=== PATIENT | male | born 1930 | race Caucasian/White ===

== ENCOUNTER 2017-12-08 15:46 | Inpatient (IN) | payer MEDICARE, MEDICAID ==
[~2017-12-08] VITALS: Ht 172.7 cm; Wt 84.8 kg
[2017-12-08] MEDS ORDERED: SODIUM CHLORIDE 0.9% 1,000 ML IV ONE (16:31)
[2017-12-08 18:24] LABS: CHLORIDE 125 mEq/L (98-107); INR 2.6; PROTHROMBIN TIME 26.1 sec (9.1-11.1)
[2017-12-08 18:27] LABS: ETHANOL BLOOD < 10 mg/dL
[2017-12-08 18:31] LABS: CLARITY URINE CLOUDY (CLEAR); COLOR URINE DARK YELLOW (YELLOW); KETONES URINE TRACE (NEGATIVE); LEUKOCYTE ESTERASE URINE NEGATIVE (NEGATIVE); NITRITE URINE NEGATIVE (NEGATIVE); OCCULT BLOOD URINE NEGATIVE (NEGATIVE); PROTEIN URINE NEGATIVE (NEGATIVE); SPECIFIC GRAVITY URINE 1.014 (1.005-1.030)
[2017-12-08] MEDS ORDERED: MEROPENEM 1,000 MG in SODIUM CHLORIDE 0.9% 100 ML IV NR (19:00)
[2017-12-08] MEDS ORDERED: ASPIRIN 325MG TABLET PO NR (19:00)
[2017-12-08] MEDS ORDERED: VANCOMYCIN 1 G PREMIX 200 ML IV NR (19:00)
[2017-12-08] MEDS ORDERED: SODIUM CHLORIDE 0.9% 1000ML BAG (SEPSIS BOLUS) IV ONE (19:00)
[2017-12-08] MEDS ORDERED: SODIUM CHLORIDE 0.9% 1,250 ML IV SCH (19:00)
[2017-12-08 19:04] LABS: *AMPHETAMINES SCREEN URINE NEGATIVE (NEGATIVE); *BARBITURATES SCREEN URINE NEGATIVE (NEGATIVE); *BENZODIAZEPINES SCREEN URINE NEGATIVE (NEGATIVE); *COCAINE SCREEN URINE NEGATIVE (NEGATIVE)
[2017-12-08 19:05] LABS: CANNABINOID URINE SCREEN NEGATIVE (NEGATIVE); METHADONE URINE SCREEN NEGATIVE (NEGATIVE); OPIATES URINE SCREEN NEGATIVE (NEGATIVE); PHENCYCLIDINE URINE SCREEN NEGATIVE (NEGATIVE)
[2017-12-08 19:12] LABS: HEMATOCRIT. 27.8 % (42.0-52.0); HEMOGLOBIN. 8.3 g/dL (14.0-18.0); MEAN CORPUSCULAR HEMOGLOBIN 25.5 pg (28.0-32.0); MEAN CORPUSCULAR VOLUME 85.6 fL (80.0-94.0); MEAN PLATELET VOLUME 9.2 fl (7.4-10.4); RED BLOOD CELL COUNT 3.24 mill/uL (4.7-6.1); RED CELL DISTRIBUTION WIDTH 27.2 % (11.6-14.6)
[2017-12-08 19:13] LABS: PLATELET 46 x1000/uL (130-400)
[2017-12-08 19:42] LABS: CREATINE KINASE 618 IU/L (39-308)
[2017-12-08] MEDS ORDERED: ONDANSETRON HCL 4MG/2ML INJ IV PRN (20:00)
[2017-12-08] MEDS ORDERED: CLONIDINE 0.1MG TABLET PO PRN (20:00)
[2017-12-08] MEDS ORDERED: GUAIFENESIN 200MG/10ML SUGAR FREE UDC PO PRN (20:00)
[2017-12-08] MEDS ORDERED: ACETAMINOPHEN 325MG TABLET PO PRN (20:00)
[2017-12-08] MEDS ORDERED: DOCUSATE SODIUM 100MG CAPSULE PO PRN (20:00)
[2017-12-08] MEDS ORDERED: NITROGLYCERIN 0.4MG TABLET SL SL PRN (20:00)
[2017-12-08] MEDS ORDERED: PIPERACILLIN/TAZ 3.375G PREMIX 50 ML IV SCH (20:00)
[2017-12-08] MEDS ORDERED: IPRATROPIUM/ALBUTEROL 0.5-3(2.5)MG/3ML NEB INH PRN (20:00)
[2017-12-08] MEDS ORDERED: MAGNESIUM/ALUMINUM HYDROXIDE/SIMETHICONE 30ML UDC PO PRN (20:00)
[2017-12-08 20:08] LABS: PLATELET ESTIMATE MARKEDLY DECREASED
[2017-12-08 20:33] LABS: TOTAL IRON BINDING CAPACITY 118 ug/dL (250-450)
[2017-12-08 21:40] LABS: FOLIC ACID (FOLATE) SERUM > 20.00 ng/mL (>5.38); VITAMIN B12 SERUM > 2000.0 pg/mL (211-911)
[2017-12-08 21:46] LABS: AMMONIA < 10 uMol/L (<32)
[2017-12-09] VITALS (21 sets, daily range): BP systolic 84–130; BP diastolic 42–82
[2017-12-09] MEDS ORDERED: NA PHOS,M-B/NA PHOS,DI-BA ENEMA 118ML PR PRN (00:30)
[2017-12-09] MEDS: DEXT 5%/0.45% NACL 1000ML 1,000 ML IV SCH ×3 (00:52→16:09)
[2017-12-09] MEDS ORDERED: ALBUMIN HUMAN 25GM/100ML (25%) IV SCH (02:00)
[2017-12-09] MEDS ORDERED: PIPERACILLIN/TAZ 3.375G PREMIX 50 ML IV SCH (03:00)
[2017-12-09] MEDS: PANTOPRAZOLE SODIUM 40 MG/VIAL IV SCH ×2 (10:22→22:41)
[2017-12-09] MEDS: ZINC SULFATE 220 MG ( 50 ) CAPSULE PO SCH (10:23)
[2017-12-09] MEDS: ASPIRIN 325MG EC TABLET PO SCH (10:23)
[2017-12-09] MEDS: ASCORBIC ACID 500 MG TABLET PO SCH ×2 (10:34→21:00)
[2017-12-09] MEDS ORDERED: PIPERACILLIN/TAZ 2.25G PREMIX 50 ML IV SCH (11:00)
[2017-12-09] MEDS ORDERED: SODIUM BICARBONATE 8.4% 1 MEQ/ML 50ML SYR IV NR (11:30)
[2017-12-09 11:50] LABS: BG BASE EXCESS -7.8 mmol/L (-2.0-2.0); BG CARBOXYHEMOGLOBIN 0.7 % (0.5-1.5); BG DEOXYHEMOGLOBIN 3.6 % (0.0-5.0); BG HCO3 ACT 15.5 mmol/L (22.0-26.0); BG METHEMOGLOBIN 0.3 % (0.0-1.5); BG OXYGEN SATURATION 96.4 % (92.0-98.5); BG OXYHEMOGLOBIN 95.4 % (94.0-97.0); BG PCO2 24.2 mmHg (35.0-45.0); BG PH 7.425 (7.350-7.450); BG PO2 94.3 mmHg (75.0-100.0); BG SAMPLE SITE RIGHT BRACHIAL; BG VENT MODE ROOM AIR
[2017-12-09 12:00] LABS: HEMATOCRIT. 24.3 % (42.0-52.0); HEMOGLOBIN. 7.5 g/dL (14.0-18.0); MEAN CORPUSCULAR HEMOGLOBIN 25.9 pg (28.0-32.0); MEAN CORPUSCULAR VOLUME 83.8 fL (80.0-94.0); MEAN PLATELET VOLUME 8.8 fl (7.4-10.4); RED BLOOD CELL COUNT 2.89 mill/uL (4.7-6.1)
[2017-12-09] MEDS ORDERED: CITRIC ACID/SODIUM CITRATE SOLN 30ML UDC PO SCH (12:00)
[2017-12-09 12:14] LABS: PLATELET 34 x1000/uL (130-400)
[2017-12-09 12:20] LABS: CHLORIDE 126 mEq/L (98-107)
[2017-12-09] MEDS ORDERED: SODIUM POLYSTYRENE SULFONATE 15 G/60 ML BOT PO NR (12:30)
[2017-12-09] MEDS ORDERED: CEFEPIME XX SCH (13:15)
[2017-12-09] MEDS ORDERED: FLAGYL XX SCH (13:15)
[2017-12-09 13:20] LABS: PLATELET ESTIMATE MARKEDLY DECREASED
[2017-12-09] MEDS ORDERED: CEFEPIME 1GM PREMIX 50 ML IV SCH (14:30)
[2017-12-09] MEDS: CEFEPIME 1,000 MG in DEXTROSE 5% WATER 50 ML IV SCH (15:22)
[2017-12-09] MEDS: METRONIDAZOLE 500 MG PREMIX 100 ML IV SCH (16:06)
[2017-12-09] MEDS ORDERED: VANCOMYCIN 1 G PREMIX 200 ML IV NR (17:00)
[2017-12-09 18:07] LABS: HEMATOCRIT 22.8 % (42.0-52.0); HEMOGLOBIN 7.1 g/dL (14.0-18.0)
[2017-12-10] VITALS (15 sets, daily range): BP systolic 91–139; BP diastolic 49–79
[2017-12-10] MEDS: DEXT 5%/0.45% NACL 1000ML 1,000 ML IV SCH ×4 (04:56→20:05)
[2017-12-10] MEDS: METRONIDAZOLE 500 MG PREMIX 100 ML IV SCH ×2 (04:56→18:23)
[2017-12-10 06:15] LABS: HEMATOCRIT. 24.5 % (42.0-52.0); HEMOGLOBIN. 7.8 g/dL (14.0-18.0); MEAN CORPUSCULAR HEMOGLOBIN 27.4 pg (28.0-32.0); MEAN CORPUSCULAR VOLUME 85.6 fL (80.0-94.0); MEAN PLATELET VOLUME 6.9 fl (7.4-10.4); RED BLOOD CELL COUNT 2.86 mill/uL (4.7-6.1); RED CELL DISTRIBUTION WIDTH 25.8 % (11.6-14.6)
[2017-12-10 06:25] LABS: CHLORIDE 123 mEq/L (98-107)
[2017-12-10 06:39] LABS: PHOSPHORUS 5.9 mg/dL (2.5-4.9)
[2017-12-10 06:48] LABS: HAPTOGLOBIN <31.0 mg/dL (30-200)
[2017-12-10 06:53] LABS: CREATINE KINASE 1589 IU/L (39-308)
[2017-12-10 07:01] LABS: HEPATITIS B SURFACE ANTIGEN NEGATIVE; PLATELET 28 x1000/uL (130-400)
[2017-12-10 07:29] LABS: HEPATITIS B CORE AB IGM NEGATIVE
[2017-12-10 07:31] LABS: HEPATITIS A AB IGM NEGATIVE (NEGATIVE)
[2017-12-10] MEDS: ASCORBIC ACID 500 MG TABLET PO SCH ×2 (08:30→20:47)
[2017-12-10] MEDS: ASPIRIN 325MG EC TABLET PO SCH (08:30)
[2017-12-10] MEDS: ZINC SULFATE 220 MG ( 50 ) CAPSULE PO SCH (08:30)
[2017-12-10] MEDS: PANTOPRAZOLE SODIUM 40 MG/VIAL IV SCH ×2 (08:34→20:47)
[2017-12-10] MEDS: CEFEPIME 1,000 MG in DEXTROSE 5% WATER 50 ML IV SCH (09:31)
[2017-12-10 09:38] LABS: NUCLEATED RED BLOOD CELLS 11 /100 WBC; PLATELET ESTIMATE MARKEDLY DECREASED
[2017-12-10] MEDS ORDERED: PHYTONADIONE 10MG/ML AMP SUBCUT NR (11:00)
[2017-12-10] MEDS: SUCRALFATE 1 G/10 ML UDC PO SCH ×3 (11:23→23:19)
[2017-12-10 11:29] LABS: INR 1.9; PROTHROMBIN TIME 19.1 sec (9.1-11.1)
[2017-12-10] MEDS ORDERED: LIDOCAINE HCL 1% 20ML VIAL (Pyxis) INJ ONE (12:38)
[2017-12-10 16:38] LABS: HEMATOCRIT 24.5 % (42.0-52.0)
[2017-12-11] VITALS (15 sets, daily range): BP systolic 86–121; BP diastolic 52–70
[2017-12-11 00:17] LABS: HEMATOCRIT 25.3 % (42.0-52.0)
[2017-12-11] MEDS: METRONIDAZOLE 500 MG PREMIX 100 ML IV SCH (03:06)
[2017-12-11] MEDS: SUCRALFATE 1 G/10 ML UDC PO SCH ×4 (05:57→23:32)
[2017-12-11 06:33] LABS: HEMATOCRIT. 23.5 % (42.0-52.0); HEMOGLOBIN. 7.6 g/dL (14.0-18.0); MEAN CORPUSCULAR HEMOGLOBIN 27.2 pg (28.0-32.0); MEAN CORPUSCULAR VOLUME 84.6 fL (80.0-94.0); MEAN PLATELET VOLUME 10.5 fl (7.4-10.4); RED BLOOD CELL COUNT 2.78 mill/uL (4.7-6.1); RED CELL DISTRIBUTION WIDTH 26.4 % (11.6-14.6)
[2017-12-11 06:39] LABS: PLATELET 16 x1000/uL (130-400)
[2017-12-11 06:45] LABS: INR 1.7; PARTIAL THROMBOPLASTIN TIME 37.5 sec (23.4-31.0)
[2017-12-11] MEDS: DEXT 5%/0.45% NACL 1000ML 1,000 ML IV SCH (06:51)
[2017-12-11 06:59] LABS: CHLORIDE 120 mEq/L (98-107)
[2017-12-11 07:10] LABS: PHOSPHORUS 3.5 mg/dL (2.5-4.9)
[2017-12-11 07:27] LABS: CREATINE KINASE 1043 IU/L (39-308)
[2017-12-11] MEDS: ZINC SULFATE 220 MG ( 50 ) CAPSULE PO SCH (09:00)
[2017-12-11] MEDS: ASCORBIC ACID 500 MG TABLET PO SCH ×2 (09:00→21:18)
[2017-12-11] MEDS: PANTOPRAZOLE SODIUM 40 MG/VIAL IV SCH ×2 (09:09→21:18)
[2017-12-11 09:17] LABS: NUCLEATED RED BLOOD CELLS 4 /100 WBC; PLATELET ESTIMATE MARKEDLY DECREASED
[2017-12-11] MEDS: DEXT 5%/0.2% NACL 1,000 ML IV SCH ×2 (09:43→23:33)
[2017-12-11] MEDS ORDERED: ALBUMIN HUMAN 25GM/100ML (25%) IV SCH (10:00)
[2017-12-11] MEDS ORDERED: MIDODRINE HCL 5MG TABLET PO SCH (16:00)
[2017-12-11] MEDS: CEFAZOLIN 2,000 MG in DEXT 5% WATER 100 ML IV SCH (17:29)
[2017-12-11] MEDS ORDERED: VANCOMYCIN 1 G PREMIX 200 ML IV SCH (18:00)
[2017-12-11] MEDS: MIDODRINE HCL 5MG TABLET PO SCH (20:02)
[2017-12-12] VITALS (12 sets, daily range): BP systolic 80–103; BP diastolic 49–68
[2017-12-12] MEDS: SUCRALFATE 1 G/10 ML UDC PO SCH ×3 (06:13→17:11)
[2017-12-12 06:32] LABS: INR 1.5; PARTIAL THROMBOPLASTIN TIME 44.7 sec (23.4-31.0); PROTHROMBIN TIME 14.8 sec (9.1-11.1)
[2017-12-12 06:40] LABS: BASOPHILS % 0.1 % (0.0-2.0); EOSINOPHILS % 0.2 % (0.0-5.0); HEMATOCRIT. 24.6 % (42.0-52.0); HEMOGLOBIN. 7.9 g/dL (14.0-18.0); LYMPHOCYTES % 7.6 % (20.0-50.0); MEAN CORPUSCULAR HEMOGLOBIN 27.7 pg (28.0-32.0); MEAN CORPUSCULAR VOLUME 85.9 fL (80.0-94.0); MEAN PLATELET VOLUME 9.8 fl (7.4-10.4); NEUTROPHILS % 88.1 % (40.0-76.0); RED BLOOD CELL COUNT 2.86 mill/uL (4.7-6.1); RED CELL DISTRIBUTION WIDTH 26.9 % (11.6-14.6)
[2017-12-12 07:31] LABS: PLATELET 22 x1000/uL (130-400)
[2017-12-12 08:18] LABS: CHLORIDE 107 mEq/L (98-107)
[2017-12-12] MEDS: PANTOPRAZOLE SODIUM 40 MG/VIAL IV SCH ×2 (08:33→21:48)
[2017-12-12] MEDS: MIDODRINE HCL 5MG TABLET PO SCH ×3 (08:34→17:11)
[2017-12-12] MEDS: DEXT 5%/0.2% NACL 1,000 ML IV SCH (12:30)
[2017-12-12] MEDS: CEFAZOLIN 2,000 MG in DEXT 5% WATER 100 ML IV SCH (16:01)
[2017-12-12] MEDS ORDERED: OCTREOTIDE 1,000 MCG in SODIUM CHLORIDE 0.9% 100 ML IV ONE (18:30)
[2017-12-13] VITALS (15 sets, daily range): BP systolic 91–107; BP diastolic 55–67
[2017-12-13] MEDS: SUCRALFATE 1 G/10 ML UDC PO SCH ×4 (01:25→18:54)
[2017-12-13] MEDS: DEXT 5%/0.2% NACL 1,000 ML IV SCH (05:53)
[2017-12-13 06:06] LABS: CHLORIDE 104 mEq/L (98-107)
[2017-12-13 06:23] LABS: PHOSPHORUS 4.4 mg/dL (2.5-4.9)
[2017-12-13 06:33] LABS: HEMATOCRIT. 26.6 % (42.0-52.0); HEMOGLOBIN. 8.5 g/dL (14.0-18.0); MEAN CORPUSCULAR HEMOGLOBIN 27.7 pg (28.0-32.0); MEAN CORPUSCULAR VOLUME 86.2 fL (80.0-94.0); RED BLOOD CELL COUNT 3.09 mill/uL (4.7-6.1); RED CELL DISTRIBUTION WIDTH 27.3 % (11.6-14.6)
[2017-12-13 06:48] LABS: PLATELET 49 x1000/uL (130-400)
[2017-12-13 08:28] LABS: PLATELET ESTIMATE SLIGHTLY DECREASED
[2017-12-13] MEDS: MIDODRINE HCL 5MG TABLET PO SCH ×3 (09:53→16:22)
[2017-12-13] MEDS: PANTOPRAZOLE SODIUM 40 MG/VIAL IV SCH ×2 (09:53→22:02)
[2017-12-13 12:46] LABS: AMMONIA < 10 uMol/L (<32)
[2017-12-13] MEDS: NACL IV SCH (14:45)
[2017-12-13] MEDS: POTASSIUM ACETATE IV SCH (14:45)
[2017-12-13] MEDS: DEXT IV SCH (14:45)
[2017-12-13] MEDS: CEFAZOLIN 2,000 MG in DEXT 5% WATER 100 ML IV SCH (16:21)
[2017-12-14] VITALS (33 sets, daily range): BP systolic 58–229; BP diastolic 33–90
[2017-12-14] MEDS: SUCRALFATE 1 G/10 ML UDC PO SCH ×5 (02:44→23:08)
[2017-12-14] MEDS: DEXT IV SCH (02:45)
[2017-12-14] MEDS: NACL IV SCH (02:45)
[2017-12-14] MEDS: POTASSIUM ACETATE IV SCH (02:45)
[2017-12-14 07:34] LABS: HEMATOCRIT. 27.4 % (42.0-52.0); HEMOGLOBIN. 8.6 g/dL (14.0-18.0); MEAN CORPUSCULAR HEMOGLOBIN 27.4 pg (28.0-32.0); MEAN CORPUSCULAR VOLUME 87.2 fL (80.0-94.0); MEAN PLATELET VOLUME 9.5 fl (7.4-10.4); RED BLOOD CELL COUNT 3.14 mill/uL (4.7-6.1); RED CELL DISTRIBUTION WIDTH 28.3 % (11.6-14.6)
[2017-12-14 07:48] LABS: PLATELET 17 x1000/uL (130-400)
[2017-12-14] MEDS: PANTOPRAZOLE SODIUM 40 MG/VIAL IV SCH ×2 (09:05→20:47)
[2017-12-14] MEDS: MIDODRINE HCL 5MG TABLET PO SCH ×3 (09:05→20:48)
[2017-12-14 12:43] LABS: NUCLEATED RED BLOOD CELLS 1 /100 WBC; PLATELET ESTIMATE MARKEDLY DECREASED
[2017-12-14] MEDS: ALBUMIN HUMAN 25GM/100ML (25%) IV SCH ×2 (14:56→20:47)
[2017-12-14] MEDS ORDERED: FUROSEMIDE 40MG/4ML VIAL IVP NR (15:30)
[2017-12-14] MEDS ORDERED: NOREPINEPHRINE 4 MG in DEXT 5% WATER 246 ML IV PRN (20:00)
[2017-12-14 21:22] LABS: BG BASE EXCESS -15.6 mmol/L (-2.0-2.0); BG CARBOXYHEMOGLOBIN 0.7 % (0.5-1.5); BG DEOXYHEMOGLOBIN 39.5 % (0.0-5.0); BG FRACTION INSPIRED OXYGEN 100; BG METHEMOGLOBIN 0.3 % (0.0-1.5); BG OXYGEN SATURATION 60.1 % (92.0-98.5); BG OXYHEMOGLOBIN 59.5 % (94.0-97.0); BG PCO2 85.3 mmHg (35.0-45.0); BG PH 6.918 (7.350-7.450); BG PO2 43.1 mmHg (75.0-100.0); BG SAMPLE SITE RIGHT RADIAL; BG TOTAL HEMOGLOBIN 9.3 g/dL (12.0-18.0); BG VENT MODE MASK - NRB
[2017-12-14] MEDS ORDERED: SODIUM BICARBONATE 8.4% 1 MEQ/ML 50ML SYR IV NR (21:45)
[2017-12-14] MEDS: CEFAZOLIN 2,000 MG in DEXT 5% WATER 100 ML IV SCH (22:31)
[2017-12-14 22:54] LABS: BG BASE EXCESS -10.3 mmol/L (-2.0-2.0); BG CARBOXYHEMOGLOBIN 0.6 % (0.5-1.5); BG DEOXYHEMOGLOBIN 0.3 % (0.0-5.0); BG FRACTION INSPIRED OXYGEN 100; BG HCO3 ACT 17.1 mmol/L (22.0-26.0); BG METHEMOGLOBIN 0.2 % (0.0-1.5); BG OXYGEN SATURATION 99.7 % (92.0-98.5); BG OXYHEMOGLOBIN 98.9 % (94.0-97.0); BG PCO2 45.2 mmHg (35.0-45.0); BG PH 7.195 (7.350-7.450); BG SAMPLE SITE LEFT RADIAL; BG TIDAL VOLUME(mL) 450 mL; BG TOTAL HEMOGLOBIN 7.5 g/dL (12.0-18.0); BG VENT MODE VENT - A/C; BG VENT RATE 16 set
[2017-12-15] VITALS (110 sets, daily range): BP systolic 74–143; BP diastolic 44–111
[2017-12-15] MEDS ORDERED: PROPOFOL 10MG/ML 100ML 100 ML IV PRN (00:15)
[2017-12-15] MEDS: SUCRALFATE 1 G/10 ML UDC PO SCH ×4 (01:15→18:14)
[2017-12-15] MEDS: NOREPINEPHRINE 32 MG in DEXT 5% WATER 468 ML IV PRN (01:40)
[2017-12-15] MEDS: ALBUMIN HUMAN 25GM/100ML (25%) IV SCH (05:23)
[2017-12-15 06:21] LABS: BASOPHILS % 0.2 % (0.0-2.0); EOSINOPHILS % 0.1 % (0.0-5.0); HEMATOCRIT. 23.9 % (42.0-52.0); HEMOGLOBIN. 7.8 g/dL (14.0-18.0); LYMPHOCYTES % 11.6 % (20.0-50.0); MEAN CORPUSCULAR HEMOGLOBIN 28.2 pg (28.0-32.0); MEAN CORPUSCULAR VOLUME 86.9 fL (80.0-94.0); MEAN PLATELET VOLUME 10.5 fl (7.4-10.4); MONOCYTES % 3.1 % (2.0-8.0); RED BLOOD CELL COUNT 2.75 mill/uL (4.7-6.1); RED CELL DISTRIBUTION WIDTH 27.3 % (11.6-14.6)
[2017-12-15 06:49] LABS: PLATELET 14 x1000/uL (130-400)
[2017-12-15 07:28] LABS: BG BASE EXCESS -6.8 mmol/L (-2.0-2.0); BG CARBOXYHEMOGLOBIN 0.7 % (0.5-1.5); BG DEOXYHEMOGLOBIN 2.3 % (0.0-5.0); BG FRACTION INSPIRED OXYGEN 40; BG HCO3 ACT 18.1 mmol/L (22.0-26.0); BG METHEMOGLOBIN 0.4 % (0.0-1.5); BG OXYGEN SATURATION 97.7 % (92.0-98.5); BG OXYHEMOGLOBIN 96.6 % (94.0-97.0); BG PCO2 33.9 mmHg (35.0-45.0); BG PH 7.346 (7.350-7.450); BG PO2 106.2 mmHg (75.0-100.0); BG SAMPLE SITE RIGHT RADIAL; BG TIDAL VOLUME(mL) 450 mL; BG TOTAL HEMOGLOBIN 7.9 g/dL (12.0-18.0); BG VENT MODE VENT - A/C; BG VENT RATE 20 set
[2017-12-15] MEDS: MIDODRINE HCL 5MG TABLET PO SCH ×4 (09:00→18:14)
[2017-12-15] MEDS: PANTOPRAZOLE SODIUM 40 MG/VIAL IV SCH ×2 (10:44→21:50)
[2017-12-15] MEDS ORDERED: MORPHINE SULFATE 4 MG/ML CPJ (NOT FOR IM USE) IV PRN (12:45)
[2017-12-15] MEDS ORDERED: LORAZEPAM 2MG/ML CPJ IV PRN (12:45)
[2017-12-15 12:54] LABS: PHOSPHORUS 4.8 mg/dL (2.5-4.9)
[2017-12-15] MEDS: IPRATROPIUM/ALBUTEROL 0.5-3(2.5)MG/3ML NEB HHN SCH ×2 (13:23→20:30)
[2017-12-15 13:28] LABS: PLATELET ESTIMATE MARKEDLY DECREASED
[2017-12-15] MEDS ORDERED: SUCCINYLCHOLINE CHLORIDE 200MG/10ML IV ONE (13:51)
[2017-12-15] MEDS ORDERED: ETOMIDATE 2MG/ML 10ML VIAL IV ONE (13:51)
[2017-12-15] MEDS ORDERED: MEROPENEM 500 MG in SODIUM CHLORIDE 0.9% 50 ML IV SCH (15:00)
[2017-12-15] MEDS: CEFAZOLIN 2,000 MG in DEXT 5% WATER 100 ML IV SCH (16:17)
[2017-12-15] MEDS ORDERED: DOPAMINE 800MG PREMIX 250 ML IV PRN (21:45)
[2017-12-16] VITALS (41 sets, daily range): BP systolic 57–112; BP diastolic 39–70
[2017-12-16] MEDS: SUCRALFATE 1 G/10 ML UDC PO SCH ×2 (00:32→06:34)
[2017-12-16] MEDS: IPRATROPIUM/ALBUTEROL 0.5-3(2.5)MG/3ML NEB HHN SCH ×2 (01:45→09:53)
[2017-12-16] MEDS: NOREPINEPHRINE 32 MG in DEXT 5% WATER 468 ML IV PRN (02:18)
[2017-12-16] MEDS: PHENYLEPHRINE 40 MG in DEXT 5% WATER 246 ML IV PRN ×2 (04:26→08:14)
[2017-12-16 07:47] LABS: MEAN CORPUSCULAR HEMOGLOBIN 28.2 pg (28.0-32.0); MEAN PLATELET VOLUME 9.6 fl (7.4-10.4); RED BLOOD CELL COUNT 2.49 mill/uL (4.7-6.1); RED CELL DISTRIBUTION WIDTH 28.5 % (11.6-14.6)
[2017-12-16 07:48] LABS: MEAN CORPUSCULAR VOLUME 95.2 fL (80.0-94.0)
[2017-12-16 07:49] LABS: HEMATOCRIT. 23.7 % (42.0-52.0)
[2017-12-16 07:50] LABS: PLATELET 13 x1000/uL (130-400)
[2017-12-16 07:55] LABS: CHLORIDE 98 mEq/L (98-107)
[2017-12-16 08:04] LABS: AMYLASE 469 IU/L (25-115)
[2017-12-16] MEDS ORDERED: VASOPRESSIN 10 UNIT in SODIUM CHLORIDE 0.9% 99.5 ML IV PRN (08:15)
[2017-12-16 08:39] LABS: NUCLEATED RED BLOOD CELLS 11 /100 WBC
[2017-12-16 08:40] LABS: PLATELET ESTIMATE MARKEDLY DECREASED
[2017-12-16] MEDS ORDERED: DEXTROSE 50% WATER 50ML SYRINGE IV NR (09:05)
[2017-12-16] MEDS ORDERED: DEXTROSE 50% WATER 50ML SYRINGE IV ONE (09:15)
[2017-12-16 09:56] LABS: BG BASE EXCESS -24.9 mmol/L (-2.0-2.0); BG CARBOXYHEMOGLOBIN 0.7 % (0.5-1.5); BG DEOXYHEMOGLOBIN 5.2 % (0.0-5.0); BG FRACTION INSPIRED OXYGEN 35; BG HCO3 ACT 5.3 mmol/L (22.0-26.0); BG METHEMOGLOBIN 0.6 % (0.0-1.5); BG OXYGEN SATURATION 94.7 % (92.0-98.5); BG OXYHEMOGLOBIN 93.5 % (94.0-97.0); BG PCO2 25.7 mmHg (35.0-45.0); BG PH 6.935 (7.350-7.450); BG PO2 107.8 mmHg (75.0-100.0); BG SAMPLE SITE LEFT RADIAL; BG TIDAL VOLUME(mL) 450 mL; BG TOTAL HEMOGLOBIN 6.5 g/dL (12.0-18.0); BG VENT MODE VENT - A/C; BG VENT RATE 20 set
[2017-12-16] MEDS ORDERED: CALCIUM CHLORIDE 1,000 MG in DEXT 5% WATER 90 ML IV NR (10:00)
[2017-12-16] MEDS: PANTOPRAZOLE SODIUM 40 MG/VIAL IV SCH (10:09)
[2017-12-16] MEDS: MIDODRINE HCL 5MG TABLET PO SCH (10:10)
[2017-12-16] MEDS ORDERED: INSULIN REGULAR (HUMULIN R) 300UNITS/3ML IV SCH (10:37)
[2017-12-16] MEDS ORDERED: CALCIUM CHLORIDE 1GM/10ML SYR IV ONE (11:10)
[2017-12-16] MEDS ORDERED: SODIUM BICARBONATE 7.5% 0.9 MEQ/ML 50ML SYR IV ONE (11:10)
[2017-12-16] MEDS ORDERED: EPINEPHRINE 0.1MG/ML (1:10,000) 10ML SYR ONE (11:10)
[2017-12-16] MEDS ORDERED: AMIODARONE HCL 50MG/ML 3ML VIAL IV ONE (11:10)
== END 2017-12-16 10:40 | disposition expired | DRG 871 ==
LOC: EDBEDREQTM 16:35 → ER 16:54 → 5EST 19:06 → EDBEDREQTM 19:09 → EDBEDREQ 19:09 → SUPCPDRO 19:52 → ENRESERV 20:06 → 5EST 12-09 00:46 → MICUSO 12-14 19:45
PROVIDERS: ADMIT Internal Medicine; ATTEND Internal Medicine
PROC: 30233N1 Transfusion of Nonautologous Red Blood Cells into Peripheral Vein, Percutaneous Approach (ICD-10-PCS; 2017-12-09)
PROC: 30233L1 Transfusion of Nonautologous Fresh Plasma into Peripheral Vein, Percutaneous Approach (ICD-10-PCS; 2017-12-10)
PROC: 30233K1 Transfusion of Nonautologous Frozen Plasma into Peripheral Vein, Percutaneous Approach (ICD-10-PCS; 2017-12-10)
PROC: 06HY33Z Insertion of Infusion Device into Lower Vein, Percutaneous Approach (ICD-10-PCS; 2017-12-10)
PROC: 30233R1 Transfusion of Nonautologous Platelets into Peripheral Vein, Percutaneous Approach (ICD-10-PCS; 2017-12-11)
PROC: 5A1D70Z Performance of Urinary Filtration, Intermittent, Less than 6 Hours Per Day (ICD-10-PCS; 2017-12-11)
PROC: 5A1945Z Respiratory Ventilation, 24-96 Consecutive Hours (ICD-10-PCS; principal; 2017-12-15)
PROC: 0BH17EZ Insertion of Endotracheal Airway into Trachea, Via Natural or Artificial Opening (ICD-10-PCS; 2017-12-15)
PROC: 5A1D70Z Performance of Urinary Filtration, Intermittent, Less than 6 Hours Per Day (ICD-10-PCS; 2017-12-15)
PROC: 5A12012 Performance of Cardiac Output, Single, Manual (ICD-10-PCS; 2017-12-16)
DX: A41.01 Sepsis due to Methicillin susceptible Staphylococcus aureus (principal); R65.21 Severe sepsis with septic shock; E43 Unspecified severe protein-calorie malnutrition; I21.4 Non-ST elevation (NSTEMI) myocardial infarction; J96.01 Acute respiratory failure with hypoxia; J96.02 Acute respiratory failure with hypercapnia; N17.0 Acute kidney failure with tubular necrosis; K72.00 Acute and subacute hepatic failure without coma; G92 Toxic encephalopathy; K85.90 Acute pancreatitis without necrosis or infection, unspecified; D61.818 Other pancytopenia; E87.0 Hyperosmolality and hypernatremia; E87.2 Acidosis; M62.82 Rhabdomyolysis; R18.8 Other ascites; J90 Pleural effusion, not elsewhere classified; E87.1 Hypo-osmolality and hyponatremia; K92.1 Melena; D68.9 Coagulation defect, unspecified; G93.1 Anoxic brain damage, not elsewhere classified; D63.8 Anemia in other chronic diseases classified elsewhere; E83.51 Hypocalcemia; K30 Functional dyspepsia; K59.00 Constipation, unspecified; I46.9 Cardiac arrest, cause unspecified; E87.5 Hyperkalemia; R23.3 Spontaneous ecchymoses; R91.1 Solitary pulmonary nodule; K64.9 Unspecified hemorrhoids; N18.9 Chronic kidney disease, unspecified; K74.60 Unspecified cirrhosis of liver; Z51.5 Encounter for palliative care; R73.9 Hyperglycemia, unspecified; E86.1 Hypovolemia; J32.3 Chronic sphenoidal sinusitis; S70.12XA Contusion of left thigh, initial encounter; X58.XXXA Exposure to other specified factors, initial encounter; Y93.89 Activity, other specified; Y92.89 Other specified places as the place of occurrence of the external cause; Z68.28 Body mass index [BMI] 28.0-28.9, adult; Y99.8 Other external cause status; Z78.1 Physical restraint status; Z79.899 Other long term (current) drug therapy
CPT/HCPCS: 31500; 36415; 36430; 36569; 36600; 51702; 71045; 74018; 76700; 76937; 80048; 80076; 80202; 80305; 82105; 82140; 82150; 82248; 82270; 82375; 82550; 82607; 82746; 82805; 82962; 83010; 83540; 83550; 83605; 83615; 83735; 83880; 84100; 84484; 85014; 85018; 85384; 86705; 86709; 86803; 86850; 86900; 86920; 86927; 86945; 87077; 87340; 92610; 92950; 93005; 93306; 93970; 94002; 94003; 94640; 96361; 96365; 96366; 96367; 99291; A6261; C1725; C1752; C1769; C9113; G0482; J0282; J0330; J0690; J0692; J1265; J1815; J1940; J2185; J2354; J2370; J2543; J3370; J3430; J3490; J7030; J7040; J7050; J7060; J7620; P9016; P9017; P9034; P9047